=== PATIENT | male | born 1955 | race Caucasian/White ===

== ENCOUNTER 2018-12-07 16:30 | Inpatient (IN) | payer OTHER, MEDICAID, MEDICARE | END 2018-12-08 13:52 | disposition home or self-care (01) | LOC: ER 16:30 → OVERFLOW 12-08 13:45 | DX: E10.65 Type 1 diabetes mellitus with hyperglycemia (principal); E87.1 Hypo-osmolality and hyponatremia; E10.21 Type 1 diabetes mellitus with diabetic nephropathy ==